=== PATIENT | male | born 1955 | race Caucasian/White ===

== ENCOUNTER → 2017-01-29 | Outpatient (CLI) | payer BC ==
[~2017-01-29] MED LIST: AMLO-114 PO; DVN/160 PO; HYDR50TA3 PO; LYSI1TAB2 PO; VALS160T4 PO
[2017-01-29 11:00] LABS: ESTIMATED AVERAGE GLUCOSE 117 mg/dl; HA1C FLAG Normal (Normal)
[2017-01-29 11:20] LABS: ALB/GLOB RATIO 1.1 (0.9-2); ALKALINE PHOSPHATASE 56 U/L (45-117); ALT/SGPT 33 U/L (12-78); AST/SGOT 12 U/L (15-37); BLOOD UREA NITROGEN 19 mg/dl (7-18); BUN/CREATININE RATIO 19.2 (10-20); CALCIUM 8.4 mg/dl (8.5-10.1); CARBON DIOXIDE 29 mmol/L (21-32); CHLORIDE 102 mmol/L (98-107); CHOLESTEROL 166 mg/dl (0-200); CHOLESTEROL/HDL RATIO 3.9; GLUCOSE 127 mg/dl (70-99); HDL CHOLESTEROL 43 mg/dl; LDL CHOLESTEROL CALCULATED 96 mg/dl; POTASSIUM 3.4 mmol/L (3.5-5.1); SODIUM 138 mmol/L (136-145); TRIGLYCERIDES 133 mg/dl (0-150); VERY LOW DENSITY LIPOPROT CALC 27 mg/dl
== END | disposition home or self-care (01) ==
LOC: C.LABBC 08:12
PROVIDERS: ATTEND Family Medicine
DX: I10 Essential (primary) hypertension (principal); R73.03 Prediabetes; E78.5 Hyperlipidemia, unspecified

== ENCOUNTER → 2017-06-26 | Outpatient (CLI) | payer BC ==
[~2017-06-26] MED LIST changes: -DVN/160 PO; -HYDR50TA3 PO; -LYSI1TAB2 PO
[2017-06-26 16:03] LABS: HEMATOCRIT 42.2 % (42-52); MEAN CELL VOLUME 89.2 fL (80-100); MEAN CORPUSCULAR HEMOGLOBIN 31.7 pg (25-34); MEAN CORPUSCULAR HGB CONC 35.5 g/dl (32-36); MEAN PLATELET VOLUME 10.2 fL (7.4-10.4); PLATELET COUNT 249 K/uL (130-400); RED BLOOD COUNT 4.73 M/uL (4.7-6.1); WHITE BLOOD COUNT 7.21 K/uL (4.8-10.8)
[2017-06-26 16:04] LABS: BASO % 0.4 %; BASO ABS # 0.03 K/uL (0-0.2); COMPLETE YES; EOS % 1.5 %; IG% 0.1 %; LYMPH % 25.2 %; LYMPH ABS # 1.82 K/uL (1.2-3.4); MONO % 13.5 %; NEUT % 59.3 %
== END | disposition home or self-care (01) ==
LOC: C.LAB1850 13:51
PROVIDERS: ATTEND Internal Medicine
DX: R59.0 Localized enlarged lymph nodes (principal)

== ENCOUNTER → 2017-07-11 | Outpatient (CLI) | payer BC ==
--- NOTE | 2017-07-11 08:52 | DIAGNOSTIC IMAGING REPORT ---
SOFT TISS HEAD/NECK-THYROID CLINICAL HISTORY: 62 years-old Male presenting with F45.8 Globus sensation PATIENT WITH LEFT-SIDED GLOBUS SENSATION A. TECHNIQUE: Real-time grayscale and color Doppler ultrasound imaging of the thyroid and base of the neck was performed. COMPARISON: None. FINDINGS: Right lobe: Normal echogenicity and echotexture. The right lobe of the thyroid measures 5.3 x 1.9 x 1.6 cm. No nodules. No parenchymal hyperemia. Left lobe: Normal echogenicity and echotexture. The left lobe of the thyroid measures 4.3 x 1.6 x 1.6 cm. No nodules. No parenchymal hyperemia. Isthmus: The isthmus measures 6 mm in thickness. No nodules. Other: Benign-appearing cervical lymph nodes noted. IMPRESSION: Normal thyroid ultrasound. Electronically signed by: Yovany Moncada M.D. 07/11/2017 8:50 AM Dictated Date/Time: 07/11/2017 8:49 AM
--- NOTE | 2017-07-11 09:14 | DIAGNOSTIC IMAGING REPORT ---
(BARIUM SWALLOW) ESOPHAGUS CLINICAL HISTORY: 62 years-old Male with F45.8 Globus sensationPATIENT WITH LEFT-SIDED GLOBUS SENSATION A. Acute left-sided globus sensation. Initial exam. TECHNIQUE: Barium contrast and effervescent crystals were administered to the patient under fluoroscopic examination. Multiple images were obtained and submitted for review. FLUOROSCOPY TIME: 0.9 minutes COMPARISON: None. FINDINGS: During deglutition, contrast material flowed freely through the cervical esophagus. No filling defect or mucosal abnormality is identified. Within the distal cervical esophagus at approximately the C6 level, just distal to the cricopharyngeus indentation there is luminal narrowing of the esophagus with smooth margins. This finding is nicely seen on images 1 and 2 as well as on images 11 and 12. Several images however do demonstrate partial distensibility within this region excluding a high-grade fixed stricture. No evidence of obstruction. Mild tertiary contractions are noted. No significant reflux or hiatal hernia was demonstrated during the exam. The GE junction is normal in appearance. Impression: 1. Within the distal cervical esophagus, just distal to the cricopharyngeus indentation, there is focal stricturing with partial distensibility as described above demonstrating smooth margins. No high-grade fixed stenosis or obstruction identified. This could be further evaluated with endoscopy. 2. Mild tertiary contractions of the distal esophagus. The above report was generated using voice recognition software. It may contain grammatical, syntax or spelling errors. Electronically signed by: Bill Preciado M.D. 07/11/2017 9:13 AM Dictated Date/Time: 07/11/2017 9:09 AM
== END | disposition home or self-care (01) ==
LOC: C.ULTR 08:02
DX: F45.8 Other somatoform disorders (principal)

== ENCOUNTER → 2017-08-06 | Day surgery (SDC) | payer BC ==
[2017-07-30 14:51] VITALS: Ht 189.9 cm; Wt 154.6 kg
[~2017-08-06] VITALS: Ht 189.9 cm; Wt 154.6 kg
[~2017-08-06] MED LIST changes: +DVN/160 PO; +HYDR50TA3 PO; +LIDOCAINE HCL 2% 2 ML VIAL (20MG/ML) ONE; +LYSI1TAB2 PO; +PROPOFOL IV EMULSION 10 MG/ML 20 ML VIAL IV ONE; -VALS160T4 PO
--- NOTE | 2017-08-06 08:48 | Endo History and Physical ---
History & Physical Date of Service: Aug 06, 2017. Chief Complaint: Abnormal Barium Referring Physician: Dr Orellana History of Present Illness 62 yo CM who presents for EGD secondary to abnormal Barium swallow. Past Surgical History Hx Cardiac Surgery: No Hx Internal Defibrillator: No Hx Pacemaker: No Hx Abdominal Surgery: Yes (HERNIA REPAIR) Hx of Implantable Prosthesis: No Hx Post-Op Nausea and Vomiting: No Hx Cancer Surgery: No Hx Thoracic Surgery: No Hx Orthopedic: Yes (LT KNEE GROWTH REMOVAL (BENIGN), RT ELBOW SURGERY, RT KNEE GROWTH REMOVAL) Hx Urinary Tract Surgery: No Family History Colon CA Social History Smoking Status: Never Smoker Hx Substance Use: No Hx Alcohol Use: Yes (OCCASIONAL) Allergies Uncoded Allergies: BP MEDICATION (Allergy, Unknown, COUGH, 07/30/17) Current Medications Reported Home Medications Medications Dose Route/Sig Max Daily Dose Days Date Category L-Lysine (Lysine) 1,000 Mg Tab 1 Tab PO QAM 07/30/17 Reported Diovan (Valsartan) 160 Mg Tab 160 Mg PO QAM 07/30/17 Reported Hctz (Hydrochlorothiazide) 50 Mg Tab 50 Mg PO QAM 07/30/17 Reported Norvasc (Amlodipine Besylate) 10 Mg Tab 10 Mg PO QAM 10/23/13 Reported Vital Signs Weight (Kilograms): 154.55 Height (Feet): 6 Height (Inches): 2.75 Date Time Temp Pulse Resp B/P (MAP) Pulse Ox O2 Delivery O2 Flow Rate FiO2 08/06/17 08:35 36.4 77 20 169/90 (116) 95 Room Air Physical Exam General Appearance: WD/WN, no apparent distress Respiratory/Chest: Auscultation: breath sounds normal Cardiovascular: Heart Auscultation: RRR Abdomen: Bowel Sounds: normal Inspection & Palpation: soft, non-distended, no tenderness, guarding & rebound Assessment and Plan Assessment: 62 yo CM who presents for EGD secondary to abnormal Barium swallow. Plan: Proceed with EGD.
--- NOTE | 2017-08-06 09:38 | Discharge Instructions ---
Endoscopy Patient Instructions Date / Procedure(s) Performed Aug 06, 2017. EGD Allergy Information Uncoded Allergies: BP MEDICATION (Allergy, Unknown, COUGH, 07/30/17) Discharge Date / Findings Aug 06, 2017. Gastritis s/p biopsies Hiatal hernia Esophageal dilation to 18mm max with Savary dilators Medication Instructions OK to resume all medications today as prescribed Reported Home Medications Medications Dose Route/Sig Max Daily Dose Days Date Category L-Lysine (Lysine) 1,000 Mg Tab 1 Tab PO QAM 07/30/17 Reported Diovan (Valsartan) 160 Mg Tab 160 Mg PO QAM 07/30/17 Reported Hctz (Hydrochlorothiazide) 50 Mg Tab 50 Mg PO QAM 07/30/17 Reported Norvasc (Amlodipine Besylate) 10 Mg Tab 10 Mg PO QAM 10/23/13 Reported Provider Instructions Activity Restrictions - No exercising or heavy lifting for 24 hours. - Do not drink alcohol the day of the procedure. - Do not drive a car or operate machinery until the day after the procedure. - Do not make any important decisions or sign important papers in 24 hours after the procedure. Following Day: - Return to full activity which may include returning to work/school. Diet Start your diet with liquids and light foods (jello, soup, juice, toast). Then eat your usual diet if not nauseated. Treatment For Common After Affects For mild abdominal pain, bloating, or excessive gas: - Rest - Eat lightly - Lie on right side Follow-Up Information Follow-up with Dr Orellana as scheduled Anesthesia Information What You Should Know You have had a procedure that required some medicine to reduce anxiety and discomfort. This treatment is called moderate sedation. After receiving the treatment, you may be sleepy, but you will be able to breathe on your own. The effects of the treatment may last for several hours. Follow these instructions along with Activity/Diet recommendations noted above: * Do NOT do anything where dizziness or clumsiness would be dangerous. * Rest quietly at home today, then you can be up and about tomorrow. * Have a responsible person stay with you the rest of today. * You may have had an I.V. today. If so, you may take the dressing off later today. Recommendations Call your doctor if: * Trouble breathing * Continuous vomiting for more than 24 hours * Temperature above 101 degrees * Severe abdominal pain or bloating * Pain not relieved by pain medicine ordered * There is increased drainage or redness from any incision * A large amount of rectal bleeding greater than 2-3 tablespoons. (If you had a polyp/s removed or have hemorrhoids, a small amount of blood - from the rectum is to be expected.) * You have any unanswered questions or concerns. IN THE EVENT OF A SERIOUS EMERGENCY, GO TO THE NEAREST EMERGENCY ROOM Your discharge instructions were prepared by provider Quentin Castro. Patient Instructions Signature Page Darrius Lynch Patient (or Guardian) Signature/Date: I have read and understand the instructions given to me by my caregivers. Caregiver/RN/Doctor Signature/Date: The above-named patient and/or guardian has received patient instructions on this date. + Original Patient Signature Page (only) stays with chart. Please make copy for patient.
--- NOTE | 2017-08-06 09:48 | GI REPORT ---
Procedure Date: 08/06/2017 9:11 AM Procedure: Upper GI endoscopy Indications: Abnormal UGI series Medicines: Monitored Anesthesia Care Complications: No immediate complications. Estimated Blood Loss: Estimated blood loss: none. Procedure: Pre-Anesthesia Assessment: - Prior to the procedure, a History and Physical was performed, and patient medications and allergies were reviewed. The patient's tolerance of previous anesthesia was also reviewed. The risks and benefits of the procedure and the sedation options and risks were discussed with the patient. All questions were answered, and informed consent was obtained. Prior Anticoagulants: The patient has taken no previous anticoagulant or antiplatelet agents. ASA Grade Assessment: II - A patient with mild systemic disease. After reviewing the risks and benefits, the patient was deemed in satisfactory condition to undergo the procedure. After obtaining informed consent, the endoscope was passed under direct vision. Throughout the procedure, the patient's blood pressure, pulse, and oxygen saturations were monitored continuously. The scope was introduced through the mouth, and advanced to the second part of duodenum. The upper GI endoscopy was accomplished without difficulty. The patient tolerated the procedure well. Findings: No endoscopic abnormality was evident in the esophagus to explain the patient's complaint of dysphagia. It was decided, however, to proceed with dilation of the entire esophagus. A guidewire was placed and the scope was withdrawn. Dilation was performed with a Savary dilator with no resistance at 51 Fr and 54 Fr. A small hiatus hernia was present. Localized moderate inflammation characterized by erythema was found in the gastric antrum. Biopsies were taken with a cold forceps for histology. The examined duodenum was normal. Impression: - No endoscopic esophageal abnormality to explain patient's dysphagia. Esophagus dilated. Dilated. - Small hiatus hernia. - Gastritis. Biopsied. - Normal examined duodenum. Recommendation: - Resume previous diet. - Continue present medications. - Await pathology results. - Return to primary care physician as previously scheduled. Quentin Castro, 08/06/2017 9:47:33 AM This report has been signed electronically. Note Initiated On: 08/06/2017 9:11 AM I attest to the content of the Intraoperative Record and orders documented therein, exceptions below
--- NOTE | 2017-08-06 09:59 | Anesthesiology Progress Note ---
Anesthesia Post Op Note Date & Time Aug 06, 2017 at 09:59 Vital Signs Pain Intensity: 0 Vital Signs Past 12 Hours Date Time Temp Pulse Resp B/P (MAP) Pulse Ox O2 Delivery O2 Flow Rate FiO2 08/06/17 09:49 50 20 113/63 (80) 95 Room Air 08/06/17 09:34 68 20 118/71 (87) 95 Room Air 08/06/17 08:35 36.4 77 20 169/90 (116) 95 Room Air Notes Mental Status: alert / awake / arousable, participated in evaluation Pt Amnestic to Procedure: Yes Nausea / Vomiting: adequately controlled Pain: adequately controlled Airway Patency, RR, SpO2: stable & adequate BP & HR: stable & adequate Hydration State: stable & adequate Anesthetic Complications: no major complications apparent
[2017-08-06 10:05] VITALS: BP 125/76; PULSE 65; O2SAT 96
== END | disposition home or self-care (01) ==
LOC: C.GI 08:09
PROVIDERS: ATTEND Internal Medicine
DX: R13.10 Dysphagia, unspecified (principal); K44.9 Diaphragmatic hernia without obstruction or gangrene; K29.70 Gastritis, unspecified, without bleeding; E66.9 Obesity, unspecified; J45.909 Unspecified asthma, uncomplicated; I10 Essential (primary) hypertension; Z80.0 Family history of malignant neoplasm of digestive organs

== ENCOUNTER 2019-08-31 16:11 | Inpatient (IN) ==
[2019-08-31] MEDS ORDERED: dilTIAZem HCl 5 MG/ML 5 ML VIAL IV STA (16:25)
[2019-08-31] MEDS ORDERED: SODIUM CHLORIDE 0.9% 1000ML 1,000 ML IV SCH (16:30)
[2019-08-31] MEDS ORDERED: dilTIAZem HCL 125 MG in DEXTROSE 5% 100 ML IV SCH (16:30)
[2019-08-31 16:44] LABS: Basophils # (auto) 0.02 K/uL (0-0.2); Basophils % (auto) 0.3 %; Eosinophils % (auto) 1.3 %; Hematocrit (blood only) 45.5 % (42-52); Hemoglobin 16.1 g/dL (14.0-18.0); Immature Granulocytes # (auto) 0.01 K/uL (0.00-0.02); Immature Granulocytes % (auto) 0.1 %; Lymphocytes # (auto) 1.95 K/uL (1.2-3.4); Lymphocytes % (auto) 26.1 %; Mean Corpuscular Hemoglobin 32.2 pg (25-34); Mean Corpuscular Hgb Conc 35.4 g/dL (32-36); Monocytes # (auto) 0.91 K/uL (0.11-0.59); Monocytes % (auto) 12.2 %; Neutrophils # (auto) 4.49 K/uL (1.4-6.5); Platelet Count 199 K/uL (130-400); RDW Coefficient of Variation 12.8 % (11.5-14.5); RDW Standard Deviation 42.5 fL (36.4-46.3); White Blood Count 7.48 K/uL (4.8-10.8)
--- NOTE | 2019-08-31 16:56 | XRay Report ---
XR chest 1V portable CLINICAL HISTORY: 64 years-old Male presenting with Chest Pain. TECHNIQUE: Portable upright AP view of the chest was obtained. COMPARISON: None. FINDINGS: Cardiac silhouette moderately enlarged. No focal opacity. No large effusion or pneumothorax. Osseous structures normal. Upper abdomen normal. IMPRESSION: 1. Cardiomegaly. No other convincing evidence of acute cardiopulmonary disease. Electronically signed by: Yovany Moncada M.D. 08/31/2019 4:55 PM
[2019-08-31 17:01] LABS: Alanine Aminotransferase 27 U/L (12-78); Albumin Level 3.9 gm/dl (3.4-5.0); Aspartate Aminotransferase 13 U/L (15-37); BUN Creatinine Ratio 12.4 (10-20); Blood Urea Nitrogen 13 mg/dl (7-18); Calcium 9.2 mg/dl (8.5-10.1); Carbon Dioxide 29 mmol/L (21-32); Chloride 101 mmol/L (98-107); Est GFR (African American) 87.7; Est GFR (Non-African American) 75.7; Glucose 100 mg/dl (70-99); Lipase 109 U/L (73-393); Potassium 3.5 mmol/L (3.5-5.1); Sodium 138 mmol/L (136-145)
[2019-08-31 17:06] LABS: Albumin Globulin Ratio 1.1 (0.9-2); Alkaline Phosphatase 53 U/L (45-117); Bilirubin,Total 0.9 mg/dl (0.2-1); Globulin 3.5 gm/dl (2.5-4.0); Total Protein 7.4 gm/dl (6.4-8.2); Troponin I 0.021 ng/ml (0-0.045)
--- NOTE | 2019-08-31 19:27 | History & Physical Report ---
Date of Service August 31, 2019 Assessment & Plan (1) Atrial fibrillation with RVR: Uncertain etiology CBC, PRP, CXR WNL Trop neg x1, serials pending EKG noted ECHO pending TSH pending Overnight pulse ox pending for prelim assessment of SOPHIA Cardiology c/s pending Continue cardizem drip Start heparin drip (2) Hypertension: continue home meds Pt had amlodipine and valsartan this AM, but HCTZ was held for c-scope (3) Prediabetes: No current medications A1c pending (4) Hyperlipidemia: Denies current medications (5) DVT prophylaxis: Heparin drip History of Present Illness Primary Care Provider: Chris Jennings MD 64 y/o M who was sent to the ED for afib noted on monitor prior to c-scope. Pt states that he was to have a routine 5 yr f/u c-scope today, however he arrived and was noted to be in afib. His scope was cx and he was sent to the ED for further eval. Pt states that he has had no recent health concerns. He feels at his usual. He did have loose stools with the c-scope prep yesterday and today, but no prior diarrhea. Pt denies fever, SOB, chest pain, abd pain, n/v, LE pain or swelling. He has no prior hx of afib. Pt states he does snore. He uses Breath-Rite strips and this helps. No waking/ga sping for air. He states he had a sleep study 15-20 yrs ago that was WNL. Allergies Allergy/AdvReac Type Severity Reaction Status Date / Time BP MEDICATION Allergy Mild COUGH Uncoded 08/31/19 17:29 Home Medications Home Medications Medication Instructions Recorded Confirmed Type amlodipine 10 mg tablet 10 mg PO QAM tab 05/19/19 08/31/19 History lysine 1,000 mg tablet 1,000 mg PO QAM tab 05/19/19 08/31/19 History valsartan 160 mg tablet 160 mg PO QAM tab 05/19/19 08/31/19 History aspirin 81 mg chewable tablet 81 mg PO QPM #30 tab 05/21/19 08/31/19 History cetirizine 10 mg tablet 10 mg PO QPM 05/21/19 08/31/19 History hydrochlorothiazide 50 mg tablet 50 mg PO QAM #90 tab 08/18/19 08/31/19 Rx Beet Extract 1 dose PO DAILY 08/21/19 08/31/19 History Macha 1 dose PO DAILY 08/21/19 08/31/19 History Past Med/Surg History Medical History Hypertension Morbid obesity with BMI of 40.0-44.9, adult Nocturia Prediabetes Surgical History History of bilateral cataract extraction History of colonoscopy with polypectomy History of left knee surgery benign growth removed History of open reduction and internal fixation (ORIF) procedure right elbow fx---hardware in place History of right knee surgery "water pocket" removed History of wisdom tooth extraction S/P hernia repair Family History Father Cardiac disorder Hypertension Family history of diabetes mellitus Grandfather (Paternal) Cardiac disorder Grandmother (Paternal) Stroke Grandmother (Maternal) No problems noted. 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 Feels Safe at Home: Yes Smoking Status: Never smoker Second Hand Exposure: Yes (father smoked) ; Hx Alcohol Use: Yes Alcohol type: beer, wine and hard liquor Alcohol Intake Frequency: Holidays/Special Occasions Alcohol Intake Frequency Comment: 2 drinks 3-4 nights a week Hx Substance Use: No Dental Care, Regularly: Yes Seatbelt Use: always Review of Systems Review of Systems: Pertinent positives and negatives reviewed in HPI--all others negative Physical Exam Constitutional: WD/WN, vitals as above Eyes: normal visual potter by confrontation and + anicteric sclerae Neck: normal visual inspection and trachea midline Respiratory: normal respiratory effort, lungs clear to auscultation Cardiovascular: Rate/Rhythm: regular rate; + abnormal rhythm Gastrointestinal (Abdomen): Inspection/Auscultation: abdomen not distended Percussion/Palpation: abdomen soft; abdomen nontender Musculoskeletal: Head/Neck/Chest: normocephalic and head atraumatic negative for edema, peripheral pulses intact Skin: no rashes, warm and dry Neurologic: awake; not confused Speech / Cognition: normal speech Psychiatric: A+Ox3, euthymic affect Results & Data Vital Signs (Past 12 Hours) Vital Signs Temp Pulse Resp BP Pulse Ox 08/31/19 18:37 77 13 136/81 96 08/31/19 18:31 94 H 14 97 08/31/19 18:30 88 11 L 144/82 H 97 08/31/19 18:15 84 13 95 08/31/19 18:01 87 23 98 08/31/19 18:00 82 14 137/82 96 08/31/19 17:45 84 20 96 08/31/19 17:31 69 18 97 08/31/19 17:30 80 15 143/80 H 94 08/31/19 17:15 85 23 97 08/31/19 17:08 91 H 17 145/95 H 95 08/31/19 17:00 79 15 98 08/31/19 16:45 97 H 14 91 08/31/19 16:30 112 H 21 08/31/19 16:18 94 08/31/19 16:15 108 H 20 97 08/31/19 16:14 36.2 C L 104 H 20 157/117 H 97 Diagnostic Findings CXR: neg for acute ECG Rhythm: atrial fibrillation (borderline tachycardia) Code Status & VTE Plan Code Status Full code VTE Prophylaxis Plan VTE Prophylaxis will be ordered: Yes PG Care Time/CCT Total # of Minutes Spent Total Time Spent with Patient: Total time spent is greater than 50% in coordination of care (as documented) at patient's floor/unit and/or counseling patient:
[2019-08-31] MEDS ORDERED: MAGNESIUM HYDROXIDE SUSP 30 ML UDC PO PRN (20:28)
[2019-08-31] MEDS ORDERED: ACETAMINOPHEN 325 MG TAB PO PRN (20:28)
[2019-08-31] MEDS ORDERED: ONDANSETRON INJ 2 MG/ML 2 ML VIAL IV PRN (20:28)
[2019-08-31] MEDS ORDERED: HEPARIN IV BOLUS 9,000 UNITS in SYRINGE 0 ML IV ONE (21:00)
[2019-08-31] MEDS ORDERED: CETIRIZINE HCL 10 MG TABLET PO SCH (21:00)
[2019-08-31] MEDS ORDERED: ASPIRIN 81 MG ECTAB PO SCH (21:00)
[2019-08-31] MEDS: HEPARIN SODIUM/DEXTROSE 25,000 UNITS/500 ML BAG IV SCH (21:29)
--- NOTE | 2019-08-31 22:58 | Emergency Department Note ---
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 The patient explains that he was getting a routine 5 year colonoscopy today when his physician noticed he was in A-fib and sent him to the ED. The patient does not have a history of A-fib. He states that he is currently feeling fine and cannot feel his heart racing. Of note, he states that he is staying hydrated and reports diarrhea due to today's scheduled colonoscopy prep. He denies use of blood thinners, leg swelling, chest pain, shortness of breath, nausea, vomiting, dysuria, hematuria, melena, and hematochezia. The patient offers no additional complaints at this time. Patient is pre-diabetic but denies hypertension, hyperlipidemia, CAD, history of sudden at a young age, and smoking. Home Medications Home Medications Medication Instructions Recorded Confirmed Type amlodipine 10 mg tablet 10 mg PO QAM tab 05/19/19 08/31/19 History lysine 1,000 mg tablet 1,000 mg PO QAM tab 05/19/19 08/31/19 History valsartan 160 mg tablet 160 mg PO QAM tab 05/19/19 08/31/19 History aspirin 81 mg chewable tablet 81 mg PO QPM #30 tab 05/21/19 08/31/19 History cetirizine 10 mg tablet 10 mg PO QPM 05/21/19 08/31/19 History hydrochlorothiazide 50 mg tablet 50 mg PO QAM #90 tab 08/18/19 08/31/19 Rx Beet Extract 1 dose PO DAILY 08/21/19 08/31/19 History Macha 1 dose PO DAILY 11/08/19 11/18/19 History Allergies Allergy/AdvReac Type Severity Reaction Status Date / Time STEFANIA Inhibitors Allergy Unknown Verified 08/31/19 20:34 BP MEDICATION Allergy Mild COUGH Uncoded 08/31/19 17:29 Past Med/Surg History Medical History Hypertension Morbid obesity with BMI of 40.0-44.9, adult Nocturia Prediabetes Surgical History History of bilateral cataract extraction History of colonoscopy with polypectomy History of left knee surgery benign growth removed History of open reduction and internal fixation (ORIF) procedure right elbow fx---hardware in place History of right knee surgery "water pocket" removed History of wisdom tooth extraction S/P hernia repair Family History Father Cardiac disorder Hypertension Family history of diabetes mellitus Grandfather (Paternal) Cardiac disorder Grandmother (Paternal) Stroke Grandmother (Maternal) No problems noted. 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 and A total of 10 systems reviewed and were otherwise negative Physical Exam Vital Signs Vital Signs - 24 hr 08/31/19 16:14 08/31/19 16:15 08/31/19 16:18 Temperature 36.2 C L Temperature Source Oral Pulse Rate 104 H 108 H Pulse Rate from SpO2 Sensor 100 H Respiratory Rate 20 20 Respiratory Effort / Characteristics Non-Labored Respiratory Depth Normal Respiratory Pattern Regular Blood Pressure 157/117 H Blood Pressure Mean 130 Pulse Oximetry 97 97 94 Oxygen Delivery Method Room Air Room Air Sepsis Recent Fever Within 48 Hours No Sepsis New/Unexplained Change in Mental Status No Sepsis Action Taken by Nursing No Action Required 08/31/19 16:30 08/31/19 16:45 08/31/19 17:00 Temperature Temperature Source Pulse Rate 112 H 97 H 79 Pulse Rate from SpO2 Sensor 82 81 Respiratory Rate 21 14 15 Respiratory Effort / Characteristics Respiratory Depth Respiratory Pattern Blood Pressure Blood Pressure Mean Pulse Oximetry 91 98 Oxygen Delivery Method Sepsis Recent Fever Within 48 Hours Sepsis New/Unexplained Change in Mental Status Sepsis Action Taken by Nursing 08/31/19 17:08 08/31/19 17:15 08/31/19 17:30 Temperature Temperature Source Pulse Rate 91 H 85 80 Pulse Rate from SpO2 Sensor 85 89 79 Respiratory Rate 17 23 15 Respiratory Effort / Characteristics Respiratory Depth Respiratory Pattern Blood Pressure 145/95 H 143/80 H Blood Pressure Mean 100 113 Pulse Oximetry 95 97 94 Oxygen Delivery Method Room Air Sepsis Recent Fever Within 48 Hours Sepsis New/Unexplained Change in Mental Status Sepsis Action Taken by Nursing 08/31/19 17:31 08/31/19 17:45 08/31/19 18:00 Temperature Temperature Source Pulse Rate 69 84 82 Pulse Rate from SpO2 Sensor 74 78 79 Respiratory Rate 18 20 14 Respiratory Effort / Characteristics Respiratory Depth Respiratory Pattern Blood Pressure 137/82 Blood Pressure Mean 95 Pulse Oximetry 97 96 96 Oxygen Delivery Method Sepsis Recent Fever Within 48 Hours Sepsis New/Unexplained Change in Mental Status Sepsis Action Taken by Nursing 08/31/19 18:01 08/31/19 18:15 08/31/19 18:30 Temperature Temperature Source Pulse Rate 87 84 88 Pulse Rate from SpO2 Sensor 88 82 88 Respiratory Rate 23 13 11 L Respiratory Effort / Characteristics Respiratory Depth Respiratory Pattern Blood Pressure 144/82 H Blood Pressure Mean 97 Pulse Oximetry 98 95 97 Oxygen Delivery Method Sepsis Recent Fever Within 48 Hours Sepsis New/Unexplained Change in Mental Status Sepsis Action Taken by Nursing 08/31/19 18:31 08/31/19 18:37 Temperature Temperature Source Pulse Rate 94 H 77 Pulse Rate from SpO2 Sensor 88 76 Respiratory Rate 14 13 Respiratory Effort / Characteristics Respiratory Depth Respiratory Pattern Blood Pressure 136/81 Blood Pressure Mean 95 Pulse Oximetry 97 96 Oxygen Delivery Method Sepsis Recent Fever Within 48 Hours Sepsis New/Unexplained Change in Mental Status Sepsis Action Taken by Nursing GENERAL: sitting up in bed, obese, in hospital gown, no acute distress, non- toxic EYE EXAM: normal conjunctiva OROPHARYNX: no exudate, no erythema, lips, buccal mucosa, and tongue normal and mucous membranes are moist NECK: supple, no nuchal rigidity, no adenopathy, non-tender LUNGS: Clear to auscultation. Normal chest wall mechanics HEART: tachycardic and regularly irregular, S1 normal and S2 normal ABDOMEN: abdomen soft, non-tender, normo-active bowel sounds, no masses, no rebound or guarding. BACK: Back is symmetrical on inspection and there is no deformity, no midline tenderness, no CVA tenderness. SKIN: no rashes and no bruising UPPER EXTREMITIES: upper extremities are grossly normal. LOWER EXTREMITIES: No pitting edema. NEURO EXAM: Normal sensorium, cranial nerves II-XII grossly intact, normal speech, no gross weakness of arms, no gross weakness of legs. Course Course ED COURSE: Vital signs were reviewed and showed hypertension and tachycardia The patients medical record was reviewed The above diagnostic studies were performed and reviewed. ED treatments and interventions as stated above. 1621: The patient was evaluated in room B04A. A complete history and physical examination was performed. 1821: Upon reevaluation, the patient is resting.I discussed my findings with the him and he understands and agrees with the treatment plan. Based on the patients age, coexisting illnesses, exam and lab findings the decision to treat as an inpatient was made. The patient remained stable while under my care. The patient will be evaluated for further management by Dr. Violette Murray, [facility] Administ[facility] Medications Aspirin (Ecotrin Ectab) 81 mg PO QPM [facility] Stop: 09/30/19 20:59 Last Admin: 08/31/19 21:27 Dose: 81 mg Documented by: [id number] Cetirizine HCl (Zyrtec) 10 mg PO QPM [facility] Stop: 09/30/19 20:59 Last Admin: 08/31/19 21:27 Dose: 10 mg Documented by: [id number] Diltiazem HCl 125 mg/ Dextrose 125 mls @ 5 mls/hr IV .Q24H [facility]; Protocol Stop: 09/30/19 16:29 Last Admin: 08/31/19 18:38 Dose: 5 mg/hr, 5 mls/hr Documented by: [id number] Cosigned by: [id number] Heparin Sodium/Dextrose (Heparin Sodium/Dextrose) 25,000 units in 500 mls @ 40 mls/hr IV .[id number] [facility]; Protocol Stop: 09/30/19 20:27 Last Admin: 08/31/19 21:29 Dose: 2,000 units/hr, 40 mls/hr Documented by: [id number] Cosigned by: [id number] Discontinued Medications Diltiazem HCl (Cardizem) 5 mg IV NOW STA Stop: 08/31/19 16:26 Last Admin: 08/31/19 16:52 Dose: 5 mg Documented by: [id number] Cosigned by: [id number] Sodium Chloride (Nss 1000ml) 1,000 mls @ 999 mls/hr IV .[id number] [facility] Stop: 08/31/19 17:30 Last Infusion: 08/31/19 18:05 Dose: 0 mls/hr Documented by: [id number] Admin: 08/31/19 16:46 Dose: 999 mls/hr Documented by: [id number] Heparin Sodium (Porcine) 9,000 (units/ Syringe) 9 mls @ 10 mls/min IV NOW ONE Stop: 08/31/19 21:01 Last Admin: 08/31/19 21:28 Dose: 10 mls/min Documented by: [id number] Cosigned by: [id number] Impression & Plan Atrial fibrillation with RVR, Diarrhea Critical Care Time Critical Care Time: Yes Total Critical Care Time: 32 I have personally spent 32 minutes of critical care time in the direct management of this patient. This includes bedside care, interpretation of diagnostic studies, and testing, discussion with consultants, patient, and family members, and other required patient management activities. This 32 minutes is in excess of all separately billable procedures. Discharge Plan Visit Data *Final* Discharge Date/Time: 08/31/19 19:58 Chief Complaint: Cardiac Assessment Stated Complaint: CARDIAC ED Provider: Chong Beck Discharge Problem: Atrial fibrillation with RVR, Diarrhea Patient Disposition: Admitted As Inpatient Discharge Instructions Interventions: ED Discharge Assessment Last Done: 08/31/19 19:58 Medical Decision Making Differential Diagnosis Differential diagnosis includes but is not limited to etiologies such as cardiac ischemia, aortic dissection, pulmonary embolism, pneumonia, pneumothorax, musculoskeletal, infections, pericarditis, myocarditis, esophageal rupture, gastrointestinal, as well as others were entertained. Medical Records Attestation: I reviewed the patient's medical records. Home Medications Current Medication List: was personally reviewed by me Laboratory Data Attestation: I reviewed the patient's lab results. Result diagrams: 08/31/19 16:29 08/31/19 16:29 Lab Results 08/31/19 08/31/19 Range/Units 16:29 16:29 WBC 7.48 (4.8-10.8) K/uL RBC 5.00 (4.7-6.1) M/uL Hgb 16.1 (14.0-18.0) g/dL Hct 45.5 (42-52) % MCV 91.0 (80-100) fL MCH 32.2 (25-34) pg MCHC 35.4 (32-36) g/dL RDW Std Deviation 42.5 (36.4-46.3) fL RDW Coeff of Ifrah 12.8 (11.5-14.5) % Plt Count 199 (130-400) K/uL MPV 9.0 (7.4-10.4) fL Immature Gran % (Auto) 0.1 % Neut % (Auto) 60.0 % Lymph % (Auto) 26.1 % [place] % (Auto) 12.2 % Eos % (Auto) 1.3 % Baso % (Auto) 0.3 % Immature Gran # (Auto) 0.01 (0.00-0.02) K/uL Neut # (Auto) 4.49 (1.4-6.5) K/uL Lymph # (Auto) 1.95 (1.2-3.4) K/uL [place] # (Auto) 0.91 H (0.11-0.59) K/uL Eos # (Auto) 0.10 (0-0.5) K/uL Baso # (Auto) 0.02 (0-0.2) K/uL Sodium 138 (136-145) mmol/L Potassium 3.5 (3.5-5.1) mmol/L Chloride 101 (98-107) mmol/L Carbon Dioxide 29 (21-32) mmol/L Anion Gap 8.0 (3-11) BUN 13 (7-18) mg/dl Creatinine 1.05 (0.6-1.4) mg/dl Est Cr Clr Drug Dosing Not Reportable Est GFR ( Amer) 87.7 Est GFR (Non-Af Amer) 75.7 BUN/Creatinine Ratio 12.4 (10-20) Glucose 100 H (70-99) mg/dl Calcium 9.2 (8.5-10.1) mg/dl Total Bilirubin 0.9 (0.2-1) mg/dl AST 13 L (15-37) U/L ALT 27 (12-78) U/L Alkaline Phosphatase 53 (45-117) U/L Troponin I 0.021 (0-0.045) ng/ml Total Protein 7.4 (6.4-8.2) gm/dl Albumin 3.9 (3.4-5.0) gm/dl Globulin 3.5 (2.5-4.0) gm/dl Albumin/Globulin Ratio 1.1 (0.9-2) Lipase 109 (73-393) U/L Imaging Data Radiologist's Impression: Radiology results as stated below per my review and the radiologist's interpretation: XR chest 1V portable CLINICAL HISTORY: 64 years-old Male presenting with Chest Pain. TECHNIQUE: Portable upright AP view of the chest was obtained. COMPARISON: None. FINDINGS: Cardiac silhouette moderately enlarged. No focal opacity. No large effusion or pneumothorax. Osseous structures normal. Upper abdomen normal. IMPRESSION: 1. Cardiomegaly. No other convincing evidence of acute cardiopulmonary disease. Electronically signed by: Yovany Moncada M.D. 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 Patient was found to be in A. fib with RVR and was brought into the ER. He has no other complaints. IV was established blood work was obtained showed no significant leukocytosis or anemia. BMP was unremarkable with exception of a slightly elevated glucose. LFTs troponin and lipase was unremarkable. Chest x-ray reviewed and showed no focal infiltrate. EKG showed A. fib with RVR. Patient was given a bolus of Cardizem at 5 mg and placed on a Cardizem drip at 5 mg. His heart rate initially was in the low 100s trending from 100-120. After the bolus and the drip heart rate remained in the 80s. Patient's blood pressure improved significantly. He was updated bedside. Discussed with the hospitalist and admitted for A. fib with RVR on Cardizem drip. Discharge Problem: Diarrhea Qualifiers: Diarrhea type: unspecified type Qualified Code(s): R19.7 - Diarrhea, unspecified The scribe's documentation has been prepared under my direction and personally reviewed by me in its entirety. I confirm that the note above accurately reflects all work, treatment, procedures, and medical decision making performed by me.
[2019-09-01] MEDS: METOPROLOL TARTRATE 25 MG TAB PO SCH ×3 (02:56→10:38)
[2019-09-01 03:36] LABS: Partial Thromboplastin Ratio 1.8
[2019-09-01 03:38] LABS: Thyroid Stimulating Hormone 2.27 uIu/ml (0.300-4.500); Troponin I 0.027 ng/ml (0-0.045)
[2019-09-01 03:49] LABS: Partial Thromboplastin Time 49.8 Seconds (21.0-31.0)
[2019-09-01 06:12] LABS: Estimated Average Glucose 126 mg/dl
[2019-09-01] MEDS ORDERED: hydroCHLOROthiazide 25 MG TAB PO SCH (09:00)
[2019-09-01] MEDS ORDERED: AMLODIPINE BESYLATE 5 MG TAB PO SCH (09:00)
[2019-09-01] MEDS ORDERED: VALSARTAN 80 MG TAB PO SCH (09:00)
[2019-09-01] MEDS ORDERED: NON-FORMULARY MEDICATION (Lysine 1,000 MG) PO SCH (09:00)
[2019-09-01] MEDS ORDERED: POTASSIUM CHLORIDE 20 MEQ TABCR PO STA (09:47)
[2019-09-01] MEDS: HEPARIN SODIUM/DEXTROSE 25,000 UNITS/500 ML BAG IV SCH (10:19)
[2019-09-01 11:20] VITALS: PULSE 74; TEMP 97.3; O2SAT 97
--- NOTE | 2019-09-01 13:31 | Cardiology Consultation ---
Date of Consultation September 01, 2019 Assessment & Plan (1) Atrial fibrillation: He has asymptomatic atrial fibrillation, on close questioning I cannot determine a duration. It is possible this is paroxysmal and we are just catching an episode or perhaps it is more persistent and he has had a recently. At this point I would recommend anticoagulation, I agree with the use of Eliquis. He has quite good rate control overall and I do not think needs adjustment of rate control medications. I would plan on scheduling him for an office visit in 3 to 4 weeks and if he remains in atrial fibrillation plan cardioversion. History of Present Illness Reason for Consultation: Atrial fibrillation Attending Physician: Minal Barbour MD History of Present Illness This is a 64-year-old gentleman who has a history of hypertension and prediabetes who came in for routine colonoscopy on August 31, 2019 and was noted to be in atrial fibrillation. The procedure was canceled and he was sent to the emergency room, he was asymptomatic and denies shortness of breath, chest discomfort or palpitations. He has not had any change in his exercise ability lately. Allergies Allergy/AdvReac Type Severity Reaction Status Date / Time STEFANIA Inhibitors Allergy Unknown Verified 09/09/19 13:23 BP MEDICATION Allergy Mild COUGH Uncoded 09/09/19 13:23 Home Medications Home Medications Medication Instructions Recorded Confirmed Type amlodipine 10 mg tablet 10 mg PO QAM tab 05/19/19 09/09/19 History lysine 1,000 mg tablet 1,000 mg PO QAM tab 05/19/19 09/09/19 History aspirin 81 mg chewable tablet 81 mg PO QPM #30 tab 05/21/19 09/09/19 History cetirizine 10 mg tablet 10 mg PO QPM 05/21/19 09/09/19 History hydrochlorothiazide 50 mg tablet 50 mg PO QAM #90 tab 08/18/19 09/09/19 Rx metoprolol tartrate 25 mg PO BID #60 tab 09/01/19 09/09/19 Rx valsartan 80 mg tablet 160 mg PO DAILY #180 tab 09/03/19 09/09/19 Rx apixaban 5 mg tablet 5 mg PO BID #60 tab 09/09/19 09/09/19 Rx Patient History Medical History (Updated 09/09/19 @ 13:43 by Osmar Vann MD) Hypertension Morbid obesity with BMI of 40.0-44.9, adult Nocturia SOPHIA (obstructive sleep apnea) Prediabetes Surgical History History of bilateral cataract extraction History of colonoscopy with polypectomy History of left knee surgery benign growth removed History of open reduction and internal fixation (ORIF) procedure right elbow fx---hardware in place History of right knee surgery "water pocket" removed History of wisdom tooth extraction S/P hernia repair Family History Father Cardiac disorder Hypertension Family history of diabetes mellitus Grandfather (Paternal) Cardiac disorder Grandmother (Paternal) Stroke Grandmother (Maternal) No problems noted. 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 HEENT: Unremarkable Neck: No jugular venous distention, carotid pulses are irregular but otherwise normal and equal bilaterally without bruits. Pulmonary: Clear to auscultation bilaterally. Cardiac: Irregular rhythm with no murmur, gallop or rub. Abdomen: Soft, nontender with normal bowel sounds. Extremities: No edema. Distal pulses intact. Neurologic: No focal findings. Gait is steady. Skin: No rash, ecchymoses or petechiae. Results & Data Vital Signs (Past 12 Hours) Vital Signs Temp Pulse Pulse Resp BP Pulse Ox Pulse Ox 09/01/19 11:19 36.3 C L 74 19 122/81 97 09/01/19 07:29 36.6 C 75 16 130/82 94 09/01/19 03:42 36.4 C L 59 L 20 114/74 95 09/01/19 03:41 84 98 Diagnostic Findings His electrocardiogram on arrival demonstrates atrial fibrillation with a con trolled heart rate of 74 bpm. No other abnormalities. Telemetry: Atrial fibrillation with an overall well-controlled heart rate Echocardiogram: Normal left ventricular systolic function, mild left ventricular hypertrophy and mild left atrial dilatation PG Care Time/CCT Total # of Minutes Spent Total Time Spent with Patient: Total time spent is greater than 50% in coordination of care (as documented) at patient's floor/unit and/or counseling patient:
[2019-09-01] MEDS ORDERED: APIXABAN 5 MG TABLET PO STA (14:15)
--- NOTE | 2019-09-01 14:34 | Discharge Summary ---
Date of Service September 01, 2019 Admission HPI Per Admitting Provider 64 y/o M who was sent to the ED for afib noted on monitor prior to c-scope. Pt states that he was to have a routine 5 yr f/u c-scope today, however he arrived and was noted to be in afib. His scope was cx and he was sent to the ED for further eval. Pt states that he has had no recent health concerns. He feels at his usual. He did have loose stools with the c-scope prep yesterday and today, but no prior diarrhea. Pt denies fever, SOB, chest pain, abd pain, n/v, LE pain or swelling. He has no prior hx of afib. Pt states he does snore. He uses Breath-Rite strips and this helps. No waking/gasping for air. He states he had a sleep study 15-20 yrs ago that was WNL. Principal Diagnosis New onset atrial fibrillation with RVR Discharge Exam Constitutional WD/WN, vitals as above Eyes + anicteric sclerae ENMT external ear and nose normal, oropharynx normal Neck trachea midline, no thyromegaly Respiratory normal respiratory effort, lungs clear to auscultation Cardiovascular Rate/Rhythm: regular rate and + irregularly irregular Heart Sounds: no murmur Extremities: no edema Chest (Breasts) Chest: normal inspection of chest Gastrointestinal (Abdomen) normal bowel sounds, soft, nontender, no hepatosplenomegaly Musculoskeletal Extremities: extremities normal to inspection; no cyanosis and no clubbing Skin no rashes, warm and dry Neurologic moves all extremities and awake; no focal motor deficits Psychiatric A+Ox3, euthymic affect Lymphatic no lymphedema Discharge Data Allergies Allergy/AdvReac Type Severity Reaction Status Date / Time STEFANIA Inhibitors Allergy Unknown Verified 09/04/19 11:11 BP MEDICATION Allergy Mild COUGH Uncoded 09/04/19 11:11 Consultations Cardiology Ordered Studies CXR Echocardiogram Hospital Course (1) Atrial fibrillation with RVR: Asymptomatic, unclear how long has been going on. Likely paroxysmal. Noted on monitor when he went to have a colonoscopy on admission day. Rates into the 130s at times here, now controlled initially on Cardizem gtt and then placed on metoprolol 25mg po bid Was on heparin gtt and converted to Eliquis prior to discharge for CVA prevention Troponin neg x 2, labs fairly unremarkable, TSH normal Overnight POx study performed which showed total time<88% of 5:30 min:sec and qualifies for nocturnal O2 until can have formal sleep study as outpt ECHO with no valvular disease, preserved EF, no WMA, mild LVH Appreciate Cardiology consult-f/u with Cardio in 3-4 weeks and if still in Afib will plan for DCCV at that time after being on Elquis for 3-4 weeks Stable for dc to home (2) Hypertension: continue home amlodipine, valsartan , HCTZ, and added metoprolol as above (3) Prediabetes: No current medications at home-recommend diet changes A1c 6.0% (4) Hyperlipidemia: Denies current medications (5) SOPHIA (obstructive sleep apnea): Overnight oximetry with 5:30 min:sec total of desaturations<88%--> qualifies for nocturnal O2 which was arranged with [facility] prior to discharge for home delivery. 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 Gallardo's office will call you with an appointment date and time. The appointment should be in about 3-4 weeks.) Henok Stone MD [Physician] - Chris Jennings MD [Primary Care Provider] - 09/04/19 11:00 am (follow up appointment at your primary care physician office with Sharon JUAN) Osmar Vann MD [Physician] - 09/09/19 1:00 pm (follow up appointment with the lung doctor) Diet: Heart Healthy Addtl Attending Provider Instructions: You were admitted with an irregular heart rhythm called atrial fibrillation. The rate of your heart was controlled with a new medication called metoprolol. You were also started on Eliquis as a blood thinner to prevent stroke. If you have any major bleeding issues as we discussed, or if you sustain any trauma or a head injury, please come to the hospital right away. Please follow up with Dr. Gallardo of cardiology in 3-4 weeks. If you remain in atrial fibrillation at that time and have taken your Eliquis consistently, he will arrange to cardiovert (shock) your heart back to a normal rhythm. Pending Studies at Discharge: No Stand-Alone Forms: My [facility] Medications and DC Order Prescriptions: New metoprolol tartrate 25 mg Tablet 25 mg PO BID Qty: 60 RF: 0 Eliquis 5 mg tablet 5 mg PO BID Qty: 60 RF: 0 Continued hydrochlorothiazide 50 mg tablet 50 mg PO QAM Qty: 90 RF: 3 amlodipine [Norvasc] 10 mg tablet 10 mg PO QAM RF: 0 lysine 1,000 mg tablet 1,000 mg PO QAM RF: 0 aspirin 81 mg tablet,chewable 81 mg PO QPM Qty: 30 RF: 0 cetirizine [Zyrtec] 10 mg tablet 10 mg PO QPM RF: 0 Beet Extract 1 dose PO DAILY RF: 0 Macha 1 dose PO DAILY RF: 0 No Action valsartan 80 mg tablet 160 mg PO DAILY Qty: 180 RF: 3 Discharge Orders: Discharge Order (Routine); Ordered 09/01/19 Ordered By: Minal Barbour Admission Data Admit Date/Time: 08/31/19 19:24 Attending Provider: Minal Barbour Admit Provider: Violette Murray Primary Care Provider: Chris Jennings Other Providers: Violette Murray ; Henok Stone Other Interventions: Discharge Summary Assessment (RN) Last Done: 09/01/19 14:35 DC Date/Time DO NOT enter until pt leaves facility: 09/01/19 14:45
[2019-09-01 14:37] VITALS: BP 164/93
== END 2019-09-01 14:45 | disposition home or self-care (01) | DRG 309 ==
LOC: ED 16:11 → 2S 19:24 → SUATTDRO 19:24 → 2S 19:58